=== PATIENT | female | born 1955 | race Caucasian/White ===

== ENCOUNTER → 2023-05-21 06:26 | Day surgery (SDC) | payer MEDICARE, OTHER, SELFPAY | LOC: GI 06:26 | PROVIDERS: ATTENDING PHYSICIAN Specialist | DX: R10.32 Left lower quadrant pain (principal); K62.5 Hemorrhage of anus and rectum; K57.30 Diverticulosis of large intestine without perforation or abscess without bleeding; D13.39 Benign neoplasm of other parts of small intestine; K52.89 Other specified noninfective gastroenteritis and colitis; K63.5 Polyp of colon; K63.89 Other specified diseases of intestine | CPT/HCPCS: 45385; 45380; 88305 ==

== ENCOUNTER 2023-05-23 09:03 | Inpatient (IN) | payer MEDICARE, OTHER, SELFPAY ==
[2023-05-22 19:14] VITALS: BP 112/77; BMI 21.5
[2023-05-22 19:43] LABS: % Basophils 0.5 % (0-2); % Eosinophils 1.5 % (0-6); % Immature Granulocytes 0.2 % (0-0.5); % Lymphocytes 31.4 % (20.5-51.1); % Monocytes 5.8 % (1.7-9.3); % Neutrophils 60.6 % (42.2-75.2); Absolute Eosinophils 0.1 10^3/uL (0-0.7); Absolute Lymphocytes 1.7 10^3/uL (1.2-3.4); Absolute Monocytes 0.3 10^3/uL (0.1-0.6); Absolute Neutrophils 3.3 10^3/uL (1.4-6.5); Hematocrit 39.5 % (37.0-47.0); Hemoglobin 13.5 g/dL (12.0-16.0); Mean Corp Hgb Conc. 34.2 g/dL (33.0-37.0); Mean Corpuscular Volume 93.6 fL (81.0-99.0); Mean Platelet Volume 10.2 fL (7.4-10.4); Nucleated Red Blood Cells % 0 %; Platelet Count 201 10^3/uL (130-400); Red Blood Cell Count 4.22 10^6/uL (4.20-5.40); Red Cell Dist. Width 12.9 % (11.5-14.5); White Blood Cell Count 5.5 10^3/uL (4.8-10.8)
[2023-05-22 19:55] LABS: INR 0.99; PT 13.1 Sec (11.4-14.6)
[2023-05-22 19:56] LABS: APTT 30.2 Sec (23.4-35.0)
[2023-05-22 20:03] LABS: ALT (SGPT) 19 U/L (0-35); AST (SGOT) 33 U/L (14-36); Albumin 4.4 g/dl (3.5-5.0); Alkaline Phosphatase 53 U/L (38-126); Blood Urea Nitrogen 11 mg/dl (7-17); Calcium 9.3 mg/dl (8.4-10.2); Carbon Dioxide 25 mmol/L (22-30); Chloride 102 mmol/L (98-107); Estimated Creatinine Clearance 78 ml/min; Glucose 135 mg/dl (70-99); Potassium 3.9 mmol/L (3.5-5.1); Sodium 135 mmol/L (135-145); Total Bilirubin 0.9 mg/dl (0.2-1.3); eGFR > 60.00
[2023-05-22 21:06] VITALS: BP 127/84
--- NOTE | 2023-05-22 21:40 | ED.GENMED ---
History of Present Illness
General
Chief Complaint: Abdominal Symptoms
Source: patient and spouse
Time Seen by Provider: 05/22/23 20:56
Travel History
Have you had any contact with someone who has COVID-19?: No
Do you have any symptoms of coronavirus? Fever > 100 degrees, chills, cough, shortness of breath, sore throat, loss of taste or smell, muscle aches, or headache?: No
History of Present Illness
History of Present Illness:
67-year-old female who presents with rectal bleeding. The patient states he had a colonoscopy yesterday and has been doing well but today started noticed blood in the morning. She states it was mild and did not think much of it but then in the
afternoon blood became worse and while in the emergency department she had clots. Patient denies any abdominal pain. She states she did have a polypectomy during the procedure.
Past History
Past History
ED Past Surgical History: Appendectomy and Cholecystectomy
Phy Exam
Physical Exam
Physical Exam:
CONSTITUTIONAL Patient alert and oriented to person, place and time. Well-appearing. Vital signs reviewed.
HEAD atraumatic, normocephalic.
EYES eyelids normal to inspection, Pupils equally round and reactive to light, Extraocular muscles intact, Conjunctiva normal, Sclera normal.
NECK normal range of motion, Trachea midline, no jugular venous distention.
RESPIRATORY CHEST No respiratory distress noted, Chest expansion equal, Bilateral breath sounds clear.
CARDIOVASCULAR regular rate and rhythm, Heart sounds normal.
ABDOMEN abdomen nontender, Bowel sounds normal. No distention. Rectal deferred as she has positive blood toilet
BACK normal inspection, no obvious deformities
UPPER EXTREMITY range of motion normal, Motor strength normal, no cyanosis, no edema.
LOWER EXTREMITY range of motion normal, Motor strength normal, no cyanosis, no edema.
NEURO Speech normal, No focal motor deficits, Dusty coma scale 15, Memory normal, Cranial Nerves intact to screening exam.
SKIN skin warm, dry, and normal in color.
PSYCHIATRIC patient oriented to person place and time, Normal affect.
Course
Orders/Labs/Results
Orders:
Orders
05/22/23 19:26
Type+Screen Urgent
Complete Blood Count/With Diff Urgent
Comprehensive Metabolic Panel Urgent
PTT Urgent
Prothrombin Time Urgent
05/22/23 22:01
Admit/Transfer Patient As Directed
Co-Sign Provider:
Level of Care: Observation services
Assign to:: Telemetry
Physician / Group: Roberto Carlos
Diagnosis: Rectal Bleeding
Reason for Telemetry: Arrhythmia
Date to Stop Telemetry: 05/25/23
Time to Stop Telemetry: 11:00
05/22/23 22:04
Code Status As Directed
Resuscitation Status: Full Code
05/25/23 11:00
DC Protocol for Telemetry ONCE
Abnormal Lab Results
05/22/23
19:26
MCH 32.0 H pg
(27.0-31.0)
Glucose 135 H mg/dl
(70-99)
05/22/23 19:26
05/22/23 19:26
Vital Signs
Initial and Last Documented VS:
Initial Vital Signs
Temp Pulse Resp BP Pulse Ox
98.2 F 71 20 112/77 99
05/22/23 19:14 05/22/23 19:14 05/22/23 19:14 05/22/23 19:14 05/22/23 19:14
Last Documented Vital Signs
Temp Pulse Resp BP Pulse Ox
98.2 F 65 20 127/84 98
05/22/23 19:14 05/22/23 21:51 05/22/23 21:51 05/22/23 21:51 05/22/23 21:51
MDM/Problems Addressed
MDM/Problems Addressed:
GI bleed, post polypectomy bleed
*Pulse Oximetry
Patient hypoxic: no
*Medical Laboratory Manager Interpretation
Rate: normal
Interpretation: normal
Rhythm: sinus
*Critical Care Note
Total Time (30-74mins, 75-104mins- exclusive of procedures): Not Applicable
Data Reviewed
Review of Other/Old Records Reveals: Operative Reports (Colonoscopy report reviewed. 8 mm polyp removed during colonoscopy)
Source: patient and family
Further Testing Considered But Not Given:
Considered CTA but patient stable and source is likely from polypectomy
Patient Management
Discussion with other providers: Direct Marketing Specialist (Case discussed with gastroenterology. Recommends n.p.o. after midnight)
Escalation/DeEscalation of care consider admission/obs:
Appears well. Stable. Admit in light of recent polypectomy. GI aware
ED Attending Note
-
Portions of this chart may have been created with voice recognition software.� Occasional wrong word or��sound alike� substitutions may have occurred due to the inherent limitations of voice recognition software.
Discharge Plan
Departure
Patient Disposition: Admit
Date of Disposition: 05/22/23
Time of Disposition: 21:40
Admit to: Telemetry
Presentation/result/management discussed w/ accepting MD/DO: Hospitalist
Discharge Problem:
Acute GI bleeding
Prescriptions:
No Action
citalopram 10 mg Tablet
10 mg PO DAILY
simvastatin 10 mg Tablet
10 mg PO HS
spironolactone 50 mg Tablet
50 mg PO DAILY
coenzyme Q10 [Co Q-10] 100 mg Capsule
100 mg PO DAILY
cholecalciferol (vitamin D3) [Vitamin D3] 25 mcg (1,000 unit) Tablet
25 mcg PO DAILY
melatonin 10 mg Tablet
10 mg PO HS
omega 4-hnv-oxu-fish oil [Fish Oil] 1,000 mg (120 mg-180 mg) Capsule
1 cap PO DAILY
Referrals:
UNKNOWN - PT DOES,NOT KNOW [Unknown Provider] -
Interventions
Interventions:
*Risk Screen - Suicide Last Done: 05/22/23 19:14
*General Assessment Last Done: 05/22/23 21:51
*Neglect/Abuse Screening Last Done: 05/22/23 19:14
ED- Fall Risk Assessment Last Done: 05/22/23 21:06
*ED COVID-19 Vaccine History Last Done: 05/22/23 19:14
QI-Pjiwkt-Hfgqohoaoj Assessment Last Done: 05/22/23 21:06
[2023-05-22 21:51] VITALS: BP 127/84
--- NOTE | 2023-05-22 22:07 | HPS.HSE ---
Family Physician
-
Family Physician: J Luis Yeung
Chief Complaint
-
Rectal Bleeding
History of Present Illness
Patient is a 67y F with PMH significant for diverticular disease, depression and acne (on Aldactone) who presents to ED complaining of rectal bleeding. Patient underwent routine colonoscopy on 05/21/23. During that procedure she underwent
polypectomy from the terminal ileum and had biopsies taken from the transverse colon and rectum. Patient felt well last PM. Early this AM, she had a small amount of bright red blood per rectum during bowel movement / wiping.
Later in the day, she had a larger amount of dark red blood per rectum and presented to the ED for further evaluation.
Here in the ED, patient had another episode of dark red blood / clots per rectum.
Patient denies any prior history of GI bleeding.
She denies any current symptoms including headache, dizziness / lightheadedness, chest pain, SOB, etc.
Medical History
Past Medical History
Past Medical History: Reports Other
Additional Past Medical History:
Depression
Acne
Diverticular Disease
Past Surgical History: Reports Other
Additional Past Surgical History:
Cholecystectomy
Appendectomy
Left Hand Surgery
Right Foot Surgery
Social History
Tobacco: Non-smoker
Alcohol: Daily (2 glasses of wine daily.)
Personal:
Living: With Family
Family History
Family History: Diabetes
Allergies / Home Medications
Allergies reflects when Allergies were last updated in [facility].
Home Medications with original date entered in [facility]
Allergy/Medication List:
Allergies
Allergy/AdvReac Type Severity Reaction Status Date / Time
NKA - No Known Allergies Allergy - Uncoded 05/22/23 19:13
Home Medications
cholecalciferol (vitamin D3) 25 mcg (1,000 unit) tablet (Vitamin D3) 25 mcg PO DAILY 05/22/23
citalopram 10 mg tablet 10 mg PO DAILY 05/22/23
coenzyme Q10 100 mg capsule (Co Q-10) 100 mg PO DAILY 05/22/23
melatonin 10 mg tablet 10 mg PO HS 05/22/23
omega 8-cif-iec-fish oil 1,000 mg (120 mg-180 mg) capsule (Fish Oil) 1 cap PO DAILY 05/22/23
simvastatin 10 mg tablet 10 mg PO HS 05/22/23
spironolactone 50 mg tablet 50 mg PO DAILY 05/22/23
Review of Systems
-
History Source: Patient
A 12 point ROS was completed and negative except as noted: Yes
Constitutional: Denies Fever, Fatigue or Chills
Respiratory: Denies Cough or Trouble Breathing
Cardiac: Denies Chest Pain or Palpitations
Abdomen/GI: Reports Other (Rectal bleeding); Denies Abdominal Pain, Nausea, Vomiting or Diarrhea
: Denies Dysuria or Flank Pain
Musculoskeletal: Denies Joint Pain or Edema
Neurological: Denies Dizzy or Headache
Psych: Denies Depression or Anxiety
Physical Exam
Vital Signs
Vital Signs
Temp Pulse Resp BP Pulse Ox
98.2 F 65 20 127/84 98
05/22/23 19:14 05/22/23 21:51 05/22/23 21:51 05/22/23 21:51 05/22/23 21:51
Physical Exam
General: Other (67y F in no acute distress.)
HEENT: Moist mucous membranes and PERRLA
Respiratory: Clear; No Wheezes, Rales or Rhonchi
Cardiac: S1/S2 and Regular Rhythm; No Murmur
GI: Soft, Non Tender, Non Distended and Normal Bowel Sounds
Musculoskeletal: No Clubbing, No Cyanosis and No Edema
Neuro: AO x 3
Laboratory Results
-
05/22/23 19:26
05/22/23 19:26
Laboratory Results
PT 13.1 Sec (11.4-14.6) 05/22/23 19:
INR 0.99 05/22/23:
APTT 30.2 Sec (23.4-35.0) 05/22/23:
Total Bilirubin 0.9 mg/dl (0.2-1.3) 05/22/23:
AST 33 U/L (14-36) 05/22/23:
ALT 19 U/L (0-35) 05/22/23:
Alkaline Phosphatase 53 U/L (38-126) 05/22/23:
Impression/Plan
-
A/P: Patient is a 67y F with PMH significant for diverticular disease and anxiety / depression who presents to ED complaining of rectal bleeding 24 hours s/p colonoscopy.
Rectal Bleeding
s/p Colonoscopy with Polypectomy and Biopsies
- Observe overnight for further evaluation and treatment.
- Hgb is stable. Vitals are stable.
- Bleeding likely from either polypectomy site or biopsy sites.
- Follow for any further bleeding.
- Follow H&H and vitals for any new changes.
- GI evaluation.
- Follow for any persistent bleeding, may need repeat colonoscopy if bleeding does not resolve spontaneously.
Acne
- Continue spironolactone with holding parameters for BP.
Anxiety / Depression
- Stable. Continue OP med regimen.
DVT Prophylaxis: SCDs
Code Status: Full
[2023-05-22 23:05] VITALS: BP 136/69
[2023-05-22 23:46] VITALS: BP 143/69; BMI 22.3
[2023-05-23] MEDS: NSS 1000 IV ×2 (00:06→10:00)
[2023-05-23] MEDS: MELATONIN 10 MG PO ×2 (00:36→22:10)
[2023-05-23 00:42] LABS: Hematocrit 32.1 % (37.0-47.0); Hemoglobin 11.5 g/dL (12.0-16.0)
--- NOTE | 2023-05-23 01:01 | PTCARENOTE ---
Patient received from ED via stretcher. Patient ambulated into the room. Denied dizziness or light headedness. AAOx3, VSS. Patient educated on NPO status and reporting healthcare concerns. Call trevino is within reach.
[2023-05-23 03:06] VITALS: BP 106/61
--- NOTE | 2023-05-23 06:44 | CON.GI ---
Addendum entered and electronically signed by Radha Bahena MD 05/23/23 11:29:
I saw and examined the patient.
The HR SPECIALIST's note was reviewed and I agree with the note.
Colonoscopy:� 05/21/23 ella� with polyp in Terminal ileum removed with hot snare- lymphoid aggregate, erythema in transverse colon with bx, diverticulosis in sigmoid and descending with random bx taken with other biopsies consistent with evolving
lymphocytic colitis, gluten enteropathy, viral infection, autoimmune disease or medication related
-Rectal bleeding -colonoscopy 05/21/2023 with polypectomy. Likely post polypectomy bleeding
plan
Discussed about benefits and risk of colonoscopy. Patient is agreeable for repeat colonoscopy with hemostasis
Will give 2 L Colyte now
Colonoscopy today
Monitor hemoglobin
Original Note:
Consultation
-
Date/Time Consultation Requested: 05/22/23 2330
Date/Time Consultation Performed: 05/23/23 0700
Requesting Provider: Felix Day DO
Performing Provider: KAMILA Collier, Radha Bahena MD
Reason for Consultation: rectal bleeding
Medical History
Chief Complaint / HPI
Chief Complaint: rectal bleeding
History of Present Illness:
Pt is a 67yo presents with hx diverticulosis, chronic left lower quadrant pain, depression, acne on chronic spironolactone, osteopenia, hyperlipidemia, prior appe and servando with onset of rectal bleeding. Pt has telehealth visit 05/05 with
Ella with concern for rectal bleeding in April. She reported eating some undercooked rivera with left lower quadrant pain and blood tinged stools for 1 week. She was improved but was sent up for follow up colonoscopy. She had hx colonoscopy 2008
and 2018 with diverticulosis. She was recommended repeat colonoscopy which she completed on 05/21/23 with polyp in Terminal ileum removed with hot snare- lymphoid aggregate, erythema in transverse colon with bx, diverticulosis in sigmoid and
descending with random bx taken with other biopsies consistent with evolving lymphocytic colitis, gluten enteropathy, viral infection, autoimmune disease or medication related. Pt now presents to ER with small amount or bright red blood 05/21 then
larger around of dark red blood later in day with clots and persistent bleeding overnight. On admission hbg 13.5 with some drop to 11.5.
Pt admits to passing some red blood and dark blood. She also admits to chronic intermittent LLQ pain. She denies and dysphagia, GERD, nausea, vomiting, diarrhea, constipation or black stools.
Past Medical History
Past Medical History: Hypercholesterolemia, Psychiatric (depression) and Other (diverticulosis, acne on chronic Aldactone, osteopenia, )
Past Surgical History: Appendectomy, Cholecystectomy and Orthopedic (left hand and right foot surgery)
Social History
Tobacco: Non-Smoker
Alcohol: Daily (2 drinks daily)
Drug: None
Personal:
Living: With Family
Employment: Retired
Family History
Family History: Other (no family hx colon CA or polyps)
Allergies / Home Medications
Allergy/AdvReac Type Severity Reaction Status Date / Time
No Known Allergies Allergy Unverified 05/22/23 23:40
Medication Instructions Recorded
cholecalciferol (vitamin D3) 25 25 mcg PO DAILY 05/22/23
mcg (1,000 unit) tablet (Vitamin
D3)
citalopram 10 mg tablet 10 mg PO DAILY 05/22/23
coenzyme Q10 100 mg capsule (Co 100 mg PO DAILY 05/22/23
Q-10)
melatonin 10 mg tablet 10 mg PO HS 05/22/23
omega 6-eco-kuc-fish oil 1,000 mg 1 cap PO DAILY 05/22/23
(120 mg-180 mg) capsule (Fish Oil)
simvastatin 10 mg tablet 10 mg PO HS 05/22/23
spironolactone 50 mg tablet 50 mg PO DAILY 05/22/23
Review of Systems
-
History Source: Patient
Constitutional: Reports No Symptoms
EENT: Reports No Symptoms
Respiratory: Reports No Symptoms
Cardiac: Reports No Symptoms
Abdomen/GI: Reports Abdominal Pain and Bloody Stools
: Reports No Symptoms
Musculoskeletal: Reports No Symptoms
Skin: Reports No Symptoms
Neurological: Reports No Symptoms
Endocrine: Reports No Symptoms
Hematologic/Lymphatic: Reports Bleeding
Vital Signs
Temp Pulse Resp BP Pulse Ox
98.3 F 61 17 106/61 98
05/23/23 03:06 05/23/23 03:06 05/23/23 03:06 05/23/23 03:06 05/23/23 03:06
Physical Exam
Exam
General: Well Developed and No Apparent Distress
HEENT: Normocephalic and Anicteric
Respiratory: Clear
Cardiac: Regular Rhythm
GI: Soft, Non Distended and Tender (minimal LLQ chronic)
Rectal: Other (red blood per nursing record)
Musculoskeletal: No Clubbing and No Cyanosis
Skin: Warm and Dry
Neuro: Awake, Alert and AO x 3
Psych: Calm
Results
WBC 5.5 10^3/uL (4.8-10.8) 05/22/23 19:
Hgb 11.5 g/dL (12.0-16.0) L 05/23/23 00:35
Hct 32.1 % (37.0-47.0) L 05/23/23 00:35
MCV 93.6 fL (81.0-99.0) 05/22/23 19:26
Plt Count 201 10^3/uL (130-400) 05/22/23 19:26
Absolute Neuts (auto) 3.3 10^3/uL (1.4-6.5) 05/22/23:
PT 13.1 Sec (11.4-14.6) 05/22/23 19:
INR 0.99 05/22/23 19:
APTT 30.2 Sec (23.4-35.0) 05/22/23:
Sodium 135 mmol/L (135-145) 05/22/23:
Potassium 3.9 mmol/L (3.5-5.1) 05/22/23
Chloride 102 mmol/L (98-107) 05/22/23:
Carbon Dioxide 25 mmol/L (22-30) 05/22/23:
BUN 11 mg/dl (7-17) 05/22/23
Creatinine 0.6 mg/dL (0.6-1.0) 05/22/23
Calcium 9.3 mg/dl (8.4-10.2) 05/22/23
Total Bilirubin 0.9 mg/dl (0.2-1.3) 05/22/23
AST 33 U/L (14-36) 05/22/23
ALT 19 U/L (0-35) 05/22/23
Alkaline Phosphatase 53 U/L (38-126) 05/22/23:
Diagnostic Image Results:
Prior GI Procedures:
Colonoscopy: 05/21/23 ella with polyp in Terminal ileum removed with hot snare- lymphoid aggregate, erythema in transverse colon with bx, diverticulosis in sigmoid and descending with random bx taken with other biopsies consistent with evolving
lymphocytic colitis, gluten enteropathy, viral infection, autoimmune disease or medication related
Assessment / Plan
-
Pt is a 67yo presents with hx diverticulosis, chronic left lower quadrant pain, depression, acne on chronic spironolactone, osteopenia, hyperlipidemia, prior appe and servando with onset of rectal bleeding. Pt has telehealth visit 05/05 with
Ella with concern for rectal bleeding in April. She reported eating some undercooked rivera with left lower quadrant pain and blood tinged stools for 1 week. She was improved but was sent up for follow up colonoscopy. She had hx colonoscopy 2008
and 2018 with diverticulosis. She was recommended repeat colonoscopy which she completed on 05/21/23 with polyp in Terminal ileum removed with hot snare- lymphoid aggregate, erythema in transverse colon with bx, diverticulosis in sigmoid and
descending with random bx taken with other biopsies consistent with evolving lymphocytic colitis, gluten enteropathy, viral infection, autoimmune disease or medication related. Pt now presents to ER with small amount or bright red blood 05/21 then
larger around of dark red blood later in day with clots and persistent bleeding overnight. On admission hbg 13.5 with some drop to 11.5.
-rectal bleeding post 05/20 colonoscopy
-rectal bleeding 04/2023 x1 week
-colonoscopy biopsy with evolving lymphocytic colitis, gluten enteropathy, viral infection, autoimmune disease or medication related
-diverticulosis
-chronic LLQ pain
other medical problems:
-depression
-acne on chronic spironolactone
-osteopenia
-hyperlipidemia
-prior appe/servando
PLAN:
etiology of bleeding related to post polypectomy bleeding, diverticular bleeding, erythema noted on recent colonoscopy vs other
monitor hbg and stool record
some drop in hbg after admission 13.6 down to 11.5
still with bleeding this am will plan of rapid prep and colonoscopy this afternoon-- pt agreeable to proceed
noted biopsy results and reviewed with patient with multiple etiologies evolving lymphocytic colitis, gluten enteropathy, viral infection, autoimmune disease or medication related
reviewed within that diagnosis possible lymphocytic colitis and medication triggers including NSAIDS, simvastatin which she has been on for years
will add celiac panel and ITALO
no hx chronic diarrhea but did have recent GI illness in April ? viral related
-
-
Thank you for consultation and allowing me to participate in the patient's care. Please call the [facility] physician during the after hours with any questions or concerns.
[2023-05-23 07:30] VITALS: BP 115/61
--- NOTE | 2023-05-23 07:53 | W.PN.HOSP.TC ---
Today's Communication/Plan
-
cont to monitor bowel movements, H&H
possible discharge in AM if remains stable/cont to improve
Assessment / Plan
Assessment / Plan
Physical Exam
General: No acute distress appears comfortable at this time
HEENT: Moist mucous membranes and PERRLA
Respiratory: Clear; No Wheezes, Rales or Rhonchi
Cardiac: S1/S2 and Regular Rhythm; No Murmur
GI: Soft, mild tenderness, Non Distended and Normal Bowel Sounds
Musculoskeletal: No Clubbing, No Cyanosis and No Edema
Neuro: AO x 3
A/P:� Patient is a 67y F with PMH significant for diverticular disease and anxiety / depression who presents to ED complaining of rectal bleeding 24 hours s/p colonoscopy.
Rectal Bleeding
s/p Colonoscopy with Polypectomy and Biopsies
�- Hgb trend down noted, possibly dilutional vs acute blood loss, VSS, cont to monitor
�- GI eval appreciated repeat colonoscopy 05/22 polypectomy/ulceration sites with stigmata recent bleeding noted terminal ilium transverse colon, hemostatic clips placed
Acne
�- Continue spironolactone with holding parameters for BP.
Anxiety / Depression
�- Stable.� Continue OP med regimen.
DVT Prophylaxis:� SCDs
Code Status:� Full
discussed with patient and her Jason
I spent a total of 55 minutes with the patient or on the floor. More than 50% of this time involved counseling and coordination of care.
Anticipated Discharge: Within 24 hours
Subjective/Interval History
-
Date of Service: May 23, 2023
Continues to report bloody bowel movements. Otherwise feels well. reports tenderness abdomen though improved from prior.
Objective Data
-
Labs:
Laboratory Results
05/22/23 05/23/23 05/23/23
19:26 00:35 07:15
WBC 5.5
Hgb 13.5 11.5 L
Hct 39.5 32.1 L
Plt Count 201
PT 13.1
INR 0.99
APTT 30.2
Sodium 135 Pending
Potassium 3.9 Pending
Chloride 102 Pending
Carbon Dioxide 25 Pending
BUN 11 Pending
Creatinine 0.6 Pending
Glucose 135 H Pending
Calcium 9.3 Pending
Total Bilirubin 0.9
AST 33
ALT 19
Alkaline Phosphatase 53
Vital Signs:
Vital Signs
Temp Pulse Resp BP Pulse Ox
98.3 F 61 17 106/61 98
05/23/23 03:06 05/23/23 03:06 05/23/23 03:06 05/23/23 03:06 05/23/23 03:06
I&O
05/22/23 05/23/23 05/24/23
06:59 06:59 06:59
Intake Total 480 / 480
Balance 480 / 480
[2023-05-23 09:47] LABS: Blood Urea Nitrogen 14 mg/dl (7-17); Calcium 8.5 mg/dl (8.4-10.2); Carbon Dioxide 26 mmol/L (22-30); Chloride 108 mmol/L (98-107); Estimated Creatinine Clearance 65 ml/min; Glucose 94 mg/dl (70-99); Potassium 4.4 mmol/L (3.5-5.1); Sodium 135 mmol/L (135-145); eGFR > 60.00
[2023-05-23] MEDS: CELEXA 10 MG PO (10:01)
[2023-05-23] MEDS: ALDACTONE 50 MG PO (10:01)
[2023-05-23] MEDS: NULYTELY SOLUTION 2 LITERS PO (10:15)
[2023-05-23 10:23] VITALS: BP 118/59; BP 131/68; BP 136/60; PULSE 77; PULSE 78; PULSE 89
[2023-05-23 10:30] VITALS: BP 118/59; BP 131/68; BP 136/60; PULSE 77; PULSE 78; PULSE 89
--- NOTE | 2023-05-23 12:45 | PTCARENOTE ---
patient for colonoscopy today- report given to GI lab, still having bloody rectal bleeding . Dr Maki ordered tap water enema, entered patient room to give enema and patient was already picked up by transport volunteer to be taken to GI lab. GI
lab notified and made aware that enema was not given.
[2023-05-23 14:35] VITALS: BP 128/70
--- NOTE | 2023-05-23 15:06 | PTCARENOTE ---
received from GI lab post colonoscopy, assisted to bed. reporting no complaints. vitals noted. Dr Brunson at bedside. plan of care on going.
[2023-05-23 17:26] LABS: Hematocrit 29.8 % (37.0-47.0); Hemoglobin 10.4 g/dL (12.0-16.0)
[2023-05-23 21:33] LABS: Hematocrit 29.7 % (37.0-47.0); Hemoglobin 10.3 g/dL (12.0-16.0)
[2023-05-23 23:41] VITALS: BP 110/57
--- NOTE | 2023-05-24 07:17 | W.PN.HOSP.TC ---
Today's Communication/Plan
-
discharge
Assessment / Plan
Assessment / Plan
Physical Exam
General: No acute distress appears comfortable at this time
HEENT: Moist mucous membranes and PERRLA
Respiratory: Clear; No Wheezes, Rales or Rhonchi
Cardiac: S1/S2 and Regular Rhythm; No Murmur
GI: Soft, mild tenderness, Non Distended and Normal Bowel Sounds
Musculoskeletal: No Clubbing, No Cyanosis and No Edema
Neuro: AO x 3
A/P:� Patient is a 67y F with PMH significant for diverticular disease and anxiety / depression who presents to ED complaining of rectal bleeding 24 hours s/p colonoscopy.
Rectal Bleeding
s/p Colonoscopy with Polypectomy and Biopsies
�- Hgb trend down noted, possibly dilutional vs acute blood loss, VSS, H&H notably stable by end of day
�- GI eval appreciated repeat colonoscopy 05/22 polypectomy/ulceration sites with stigmata recent bleeding noted terminal ilium transverse colon, hemostatic clips placed
-No further bloody bowel movements following procedure per patient.
Acne
�- Continue spironolactone with holding parameters for BP.
Anxiety / Depression
�- Stable.� Continue OP med regimen.
DVT Prophylaxis:� SCDs
Code Status:� Full
Medically stable for discharge home with outpatient follow up recommendations.
discussed with patient
Total Time Preparing Discharge ___45____ minutes including examination of the patient, summary of the hospital stay, instructions for continuing care to all relevant caregivers; and preparation of discharge records, prescriptions, and referral
forms if necessary.
Anticipated Discharge: Today
Subjective/Interval History
-
Date of Service: May 24, 2023
Reports feeling well. Denies new bloody bowel movements since colonoscopy hemostatic clips placed yesterday. Denies new acute issues. Eager to go home.
Objective Data
-
Labs:
Laboratory Results
05/23/23
21:21
Hgb 10.3 L
Hct 29.7 L
Vital Signs:
Vital Signs
Temp Pulse Resp BP Pulse Ox
98.0 F 67 18 110/57 98
05/23/23 23:41 05/23/23 23:41 05/23/23 23:41 05/23/23 23:41 05/23/23 23:41
I&O
05/23/23 05/24/23 05/25/23
06:59 06:59 06:59
Intake Total 480 / 480 1200 / 1200
Balance 480 / 480 1200 / 1200
[2023-05-24 07:24] VITALS: BP 101/65; BP 108/66; BP 123/66; PULSE 64; PULSE 78; PULSE 80
[2023-05-24] MEDS: ALDACTONE 50 MG PO (08:50)
[2023-05-24] MEDS: CELEXA 10 MG PO (08:51)
--- NOTE | 2023-05-24 08:51 | W.DCSUMMARY ---
Discharge Summary
Discharge Data
Date of Admission: 05/23/23
Date of Discharge: 05/24/23
-
Pending Results: Yes
Additional Pending Results:
Immunology, IgA results, to be followed with GI
Hospital Course
67F hx diverticular disease, depression and acne (on Aldactone) who presented to ED reporting rectal bleeding. Patient underwent routine colonoscopy on 05/21/23. During that procedure she underwent polypectomy from the terminal ileum and had
biopsies taken from the transverse colon and rectum. Patient felt well following procedure. Early in AM however, she had a small amount of bright red blood per rectum during bowel movement / wiping. Later in the day, she had a larger amount of
dark red blood per rectum and presented to the ED for further evaluation. Here in the ED, patient had another episode of dark red blood / clots per rectum. Patient denied any prior history of GI bleeding. Denied headache, dizziness /
lightheadedness, chest pain, SOB. Rectal Bleeding s/p Colonoscopy with Polypectomy and Biopsies, Hgb trend down noted, possibly dilutional vs acute blood loss, VSS, H&H notably stable by end of day. GI eval appreciated repeat colonoscopy 05/22
polypectomy/ulceration sites with stigmata recent bleeding noted terminal ilium transverse colon, hemostatic clips placed. No further bloody bowel movements following procedure was noted per patient. Medically stable, patient was discharged home
with outpatient follow up recommendations.
Discharge Plan
-
Patient Disposition: Home (Routine Discharge)
Discharge Diagnosis/Procedures: post polypectomy bleeding status post colonoscopy 05/23/23 with hemostatic clips placed
Condition: Good
Diet: Regular
Activity: As tolerated
Driving Restrictions: As prior to admission
Bathing Restrictions: None
Blood Work: Please repeat CBC with primary care provider in 1 week of discharge.
Activity Restrictions/Additional Instructions:
Please follow up with primary care provider in 1 week of discharge and GI in 2-4 weeks of discharge.
Referrals:
Isidro Brunson MD [Active] - in two to four weeks
J Luis Yeung MD [Family Provider] - in one week
Prescriptions:
Continued
citalopram 10 mg Tablet
10 mg PO DAILY
simvastatin 10 mg Tablet
10 mg PO HS
spironolactone 50 mg Tablet
50 mg PO DAILY
coenzyme Q10 [Co Q-10] 100 mg Capsule
100 mg PO DAILY
cholecalciferol (vitamin D3) [Vitamin D3] 25 mcg (1,000 unit) Tablet
25 mcg PO DAILY
melatonin 10 mg Tablet
10 mg PO HS
omega 0-xmi-fki-fish oil [Fish Oil] 1,000 mg (120 mg-180 mg) Capsule
1 cap PO DAILY
Discharge Orders:
Discharge Patient (As Directed); Ordered 05/24/23
Ordered By: Ruth Gutierrez
Discharge Date and Time
Discharge Date/Time: 05/24/23 10:11
Print Language: MALDIVIAN
--- NOTE | 2023-05-24 10:11 | CM ---
Patient seen bedside, initial assessment completed. Patient resides with her in a two story home, denies the use of DME, denies VN, or SNF history. Patient confirms PCP J Lusi Yeung, pharmacy [facility] on [address] CM reviewed IMM,
signed, placed in chart, patient provided with copy. Patient confirms will be providing transportation home. CM will continue to follow for discharge planning needs.
Plan; home no needs.
[2023-05-24 16:01] LABS: Endomysial IgA Antibody Titer <1:10 (<1:10)
[2023-05-26 01:38] LABS: IgA 63 mg/dl (70-400)
[2023-05-28 14:23] LABS: tTG IgA Antibody 2.8 EU/ml (0-19)
== END 2023-05-24 10:11 | disposition home or self-care (01) | DRG 920 ==
LOC: 4 EAST ACU 09:03
PROVIDERS: Emergency Medicine; ADMITTING PHYSICIAN Hospitalist; ATTENDING PHYSICIAN Internal Medicine; CONSULT PHYSICIAN Internal Medicine Gastroenterology; EMERGENCY PHYSICIAN Emergency Medicine; FAMILY PHYSICIAN Family Medicine
PROC: 0W3P8ZZ Control Bleeding in Gastrointestinal Tract, Via Natural or Artificial Opening Endoscopic (ICD-10-PCS; 2023-05-23)
DX: K91.840 Postprocedural hemorrhage of a digestive system organ or structure following a digestive system procedure (principal); K63.3 Ulcer of intestine; F32.A Depression, unspecified; F41.9 Anxiety disorder, unspecified; M85.80 Other specified disorders of bone density and structure, unspecified site; E78.00 Pure hypercholesterolemia, unspecified; K52.832 Lymphocytic colitis; K57.30 Diverticulosis of large intestine without perforation or abscess without bleeding; L70.9 Acne, unspecified; K64.8 Other hemorrhoids; Y84.8 Other medical procedures as the cause of abnormal reaction of the patient, or of later complication, without mention of misadventure at the time of the procedure; Y73.0 Diagnostic and monitoring gastroenterology and urology devices associated with adverse incidents; Y92.9 Unspecified place or not applicable
CPT/HCPCS: 88305; 80048; 80053; 82784; 83516; 85014; 85018; 85025; 85610; 85730; 86231; 86850; 86900; 86901; 99285

== ENCOUNTER → 2024-04-01 14:41 | Outpatient (REF) | payer MEDICARE, OTHER, SELFPAY | LOC: WDC 14:41 | PROVIDERS: ATTENDING PHYSICIAN Student in an Organized Health Care Education/Training Program; FAMILY PHYSICIAN Family Medicine | DX: Z12.31 Encounter for screening mammogram for malignant neoplasm of breast (principal) | CPT/HCPCS: 77063; 77067 ==

== ENCOUNTER → 2025-01-24 09:42 | Outpatient (REF) | payer MEDICARE, OTHER, SELFPAY | LOC: HWRAD 09:42 | PROVIDERS: ATTENDING PHYSICIAN Specialist; FAMILY PHYSICIAN Family Medicine | DX: R79.89 Other specified abnormal findings of blood chemistry (principal) | CPT/HCPCS: 76700 ==